=== PATIENT | female | born 2000 ===

== ENCOUNTER 2025-05-03 05:12 | Inpatient (IN) | payer BC ==
[2025-05-02 10:44] LABS: BASOPHILS ABSOLUTE AUTO 0.03 K/mm3 (0.00-0.23); BASOPHILS PERCENT AUTO 0 % (0-2); EOSINOPHILS ABSOLUTE AUTO 0.06 K/mm3 (0.00-0.68); EOSINOPHILS PERCENT AUTO 1 % (0-6); Hematocrit 30.2 % (33.0-51.0); Hemoglobin 9.9 g/dL (11.5-16.0); IMMATURE GRAN ABSOLUTE AUTO 0.07 K/mm3 (0.00-0.10); IMMATURE GRAN PERCENT AUTO 1 % (0-1); LYMPHOCYTES ABSOLUTE AUTO 1.58 K/mm3 (0.84-5.20); LYMPHOCYTES PERCENT AUTO 17 % (21-46); MONOCYTES ABSOLUTE AUTO 0.54 K/mm3 (0.16-1.47); MONOCYTES PERCENT AUTO 6 % (4-13); Mean Corpuscular HGB Conc 32.8 g/dL (31.5-36.5); Mean Corpuscular Volume 87 fL (80-100); NEUTROPHILS ABSOLUTE AUTO 7.17 K/mm3 (1.96-9.15); NEUTROPHILS PERCENT AUTO 76 % (41-73); NRBC ABSOLUTE 0.00 K/mm3 (0.00-0.02); NRBC Auto 0.0 /100 WBC (0.0-0.2); Platelet Count 216 K/mm3 (150-400); RDW Coefficient Variation 14.2 % (11.7-14.2); RDW Standard Deviation 43.8 fL (35.1-46.3)
[2025-05-03] VITALS (28 sets, daily range): BP systolic 101–188; BP diastolic 60–137
[~2025-05-03] VITALS: Ht 180.3 cm; Wt 109.5 kg
[2025-05-03] MEDS ORDERED: Citric Acid/Sodium Citrate 30 ML BTL PO PRN (05:20)
[2025-05-03] MEDS ORDERED: Metoclopramide HCl 5MG / ML 2ML Vial IV PRN (05:20)
[2025-05-03] MEDS ORDERED: PRENATAL TABLE1 EAC2 PO (06:06)
[2025-05-03] MEDS ORDERED: LABE100 PO (06:06)
[2025-05-03] MEDS ORDERED: CeFAZolin Sodium 2,000 MG in NS 100 ML IV SCH (07:00)
[2025-05-03] MEDS ORDERED: FentaNYL Citrate 50 MCG/ML 2 ML Injection ONE (07:13)
[2025-05-03] MEDS ORDERED: Oxytocin 10 Unit / ML Vial ONE ×2 (07:15→08:28)
[2025-05-03] MEDS ORDERED: Phenylephrine HCl 100 MCG/ML-NS 10MLSYR (1MG/10ML) ONE (07:15)
[2025-05-03 08:21] LABS: PCO2 Cord - Arterial 77.2 mmHg (40-50); PO2 Cord - Arterial < 14.0 mmHg (16-20); pH Cord - Arterial 7.14 (7.28-7.35)
[2025-05-03 08:22] LABS: PCO2 Cord - Venous 49.6 mmHg (40-50); PO2 Cord - Venous 25.3 mmHg (28-32); pH Umbilical Cord - Venous 7.30 (7.26-7.35)
[2025-05-03] MEDS ORDERED: FentaNYL Citrate 50 MCG/ML 2 ML Injection IV PRN (08:30)
[2025-05-03] MEDS ORDERED: HydrALAZINE HCl 20 MG / ML 1ML Vial IV PRN (08:30)
[2025-05-03] MEDS ORDERED: Ondansetron HCl 2 MG / ML 2ML Vial IV PRN ×2 (08:30→08:55)
--- NOTE | 2025-05-03 08:33 | NUR ---
05/03/25 0833 Zeynep Onofre FHT PRIOR TO WERE 134. DELIVERY OF VIABLE MALE AT 0806. APGARS 9/9. PLACENTA MANUALLY DELIVERED COMPLETE. CORD BLOOD SAMPLES SENT WITH BABY'S RN, CORD SEGMANT SAMPLE SENT W/ RT FOR GASSES.
[2025-05-03] MEDS ORDERED: ePHEDrine Sulfate 50 MG/ML 1ML Injection IV PRN (08:35)
[2025-05-03] MEDS ORDERED: Ketorolac Tromethamine 30mg Vial IV PRN ×2 (08:40→21:30)
[2025-05-03] MEDS ORDERED: Magnesium Hydroxide Conc 10 ML UDC PO PRN (08:50)
[2025-05-03] MEDS ORDERED: Methylergonovine Maleate 0.2MG / ML 1ML Amp IM PRN (08:50)
[2025-05-03] MEDS ORDERED: Rho(D) Immune Globulin 300 MCG / SYR IM ONE (08:55)
[2025-05-03] MEDS ORDERED: Morphine Sulfate 4 MG/1 ML Injection IV PRN (08:55)
--- NOTE | 2025-05-03 08:58 | NUR ---
PT AWAKE ORIENTED, PT TALKATIVE, HOLDING , DENIES PAIN.
[2025-05-03] MEDS ORDERED: Prenatal Vit/FE Fumarate/FA 1 Tab PO SCH (09:00)
[2025-05-03] MEDS ORDERED: OxyCODONE 5 mg/Acetamin 325 mg TABLET PO PRN (09:00)
[2025-05-03] MEDS ORDERED: Ketorolac Tromethamine 30mg Vial IV SCH (09:00)
[2025-05-03] MEDS ORDERED: OXYTOCIN/RINGER'S LACTATE 500 ML IV SCH ×2 (09:00→09:05)
--- NOTE | 2025-05-03 10:47 | NUR ---
Pt. is in bed holding her son when she welcomed my visit. Pt. is pleasant. Family are present. Pt. and family are known to this records section supervisor from the community. Facilitaed an updated. Pt. verbalized that they were still working on a name for the baby. Prayed a blessing over the baby. Pt. and family verbalized gratitude for the spiritual care visit. Will remain available to the Pt.
[2025-05-04 00:35] VITALS: BP 134/88
[2025-05-04 05:25] VITALS: BP 133/70
[2025-05-04 06:45] LABS: BASOPHILS ABSOLUTE AUTO 0.03 K/mm3 (0.00-0.23); BASOPHILS PERCENT AUTO 0 % (0-2); EOSINOPHILS ABSOLUTE AUTO 0.09 K/mm3 (0.00-0.68); EOSINOPHILS PERCENT AUTO 1 % (0-6); Hematocrit 24.8 % (33.0-51.0); Hemoglobin 8.0 g/dL (11.5-16.0); IMMATURE GRAN ABSOLUTE AUTO 0.07 K/mm3 (0.00-0.10); IMMATURE GRAN PERCENT AUTO 1 % (0-1); LYMPHOCYTES ABSOLUTE AUTO 2.03 K/mm3 (0.84-5.20); LYMPHOCYTES PERCENT AUTO 20 % (21-46); MONOCYTES ABSOLUTE AUTO 0.80 K/mm3 (0.16-1.47); MONOCYTES PERCENT AUTO 8 % (4-13); Mean Corpuscular HGB Conc 32.3 g/dL (31.5-36.5); Mean Corpuscular Volume 87 fL (80-100); NEUTROPHILS ABSOLUTE AUTO 7.13 K/mm3 (1.96-9.15); NEUTROPHILS PERCENT AUTO 70 % (41-73); NRBC ABSOLUTE 0.00 K/mm3 (0.00-0.02); NRBC Auto 0.0 /100 WBC (0.0-0.2); Platelet Count 171 K/mm3 (150-400); RDW Coefficient Variation 14.3 % (11.7-14.2); RDW Standard Deviation 44.5 fL (35.1-46.3)
[2025-05-04 07:30] VITALS: BP 123/63
[2025-05-04 11:19] VITALS: BP 146/71
[2025-05-04 11:21] VITALS: BP 136/78
[2025-05-04 17:07] VITALS: BP 136/81
== END 2025-05-04 18:55 | disposition home or self-care (01) | DRG 788 ==
LOC: BC 05:12
PROVIDERS: ADMIT Obstetrics & Gynecology
PROC: 10D00Z1 Extraction of Products of Conception, Low, Open Approach (ICD-10-PCS; principal; 2025-05-03 07:30)
DX: O32.1XX0 Maternal care for breech presentation, not applicable or unspecified (principal); Z3A.39 39 weeks gestation of pregnancy; Z37.0 Single live birth; O13.4 Gestational [pregnancy-induced] hypertension without significant proteinuria, complicating childbirth; O99.214 Obesity complicating childbirth
CPT/HCPCS: 36415; 82803; 85025; 86850; 86900; 86901; 86923; A9270; J1885; J2371; J2590; J2765; J3010; J7120